=== PATIENT | female | born 1960 | race American Indian/Alaskan Native ===

== ENCOUNTER 2017-11-12 05:52 | Day surgery (SDC) | payer OTHER ==
[2017-11-12] MEDS ORDERED: ANCEF/STERILE WATER 2 GM/20 ML IV NR (06:00)
[2017-11-12] MEDS ORDERED: NACL BACTERIOSTATIC INFILTRATI ONE (06:35)
[2017-11-12] MEDS ORDERED: ADRENALIN IV ONE ×2 (06:41→08:00)
[2017-11-12] MEDS ORDERED: MARCAINE 0.5% 30 ML INFILTRATI ONE (07:13)
[2017-11-12] MEDS ORDERED: DECADRON ONE ×2 (07:13→10:14)
[2017-11-12] MEDS ORDERED: SUBLIMAZE ONE (07:14)
[2017-11-12] MEDS ORDERED: XYLOCAINE 1% 20 mL ONE (07:14)
[2017-11-12] MEDS ORDERED: XYLOCAINE MPF 2% ONE (07:20)
[2017-11-12] MEDS ORDERED: DIPRIVAN 10 MG/ML IV ONE (07:20)
[2017-11-12] MEDS ORDERED: SUBLIMAZE IV NR (07:23)
[2017-11-12] MEDS ORDERED: ZOFRAN IV PRN (07:23)
--- NOTE | 2017-11-12 07:23 | Anesthesia Day of Surgery ---
Anesthesia Day of Surgery - Day of Surgery Patient Examined: Yes Patient H&P Reviewed: Yes Patient is NPO: Yes Beta Blockers: Yes
--- NOTE | 2017-11-12 07:23 | Anesthesia Consultation ---
Anesthesia Consult and Med Hx Date of service: 11/12/17 - Airway Anesthetic Teeth Evaluation: Good ROM Head & Neck: Adequate Mental/Hyoid Distance: Adequate Mallampati Class: Class II Intubation Access Assessment: Probably Good - Pulmonary Exam CTA: Yes - Cardiac Exam Cardiac Exam: RRR - Pre-Operative Health Status ASA Pre-Surgery Classification: ASA2 Proposed Anesthetic Plan: General - Pulmonary Hx Smoking: No Hx Sleep Apnea: No (NICOLE PRE SCREEN LOW RISK) - Cardiovascular System Hx Hypertension: Yes (X 8 YRS - took beta george as scheduled) - Hematic Hx Anemia: Yes (NOT RECENT) Hx Sickle Cell Disease: No ([facility] TRAIT ONLY) - Other Systems Hx Cancer: No
[2017-11-12] MEDS ORDERED: XYLOCAINE 1% 20 mL INFILTRATI NR (07:30)
[2017-11-12] MEDS ORDERED: NACL P/F VIAL (10 ML) INFILTRATI NR (08:00)
[2017-11-12] MEDS ORDERED: VERSED IV NR (08:00)
[2017-11-12] MEDS ORDERED: MARCAINE 0.5% INFILTRATI NR (08:00)
[2017-11-12] MEDS ORDERED: LACTATED RINGERS 1,000 ML IV SCH (08:00)
[2017-11-12] MEDS ORDERED: ZOFRAN ONE (10:14)
--- NOTE | 2017-11-12 10:34 | Short Stay Summary ---
Short Stay Documentation Date of service: 11/12/17 - History H&P: obtained from office - Allergies and Medications Current Medications: Allergies No Known Allergies Allergy (Verified 11/02/17 10:55) Home Medications Medication Instructions Recorded Confirmed Last Taken Type Aspirin [Lo-Dose Aspirin EC] 81 mg PO DAILY 11/02/17 11/12/17 10/29/17 History Atenolol [Tenormin] 25 mg PO DAILY 11/02/17 11/02/17 11/11/17 09:00 History Hydrochlorothiazide [HCTZ] 25 mg PO QDAY 11/02/17 11/02/17 11/10/17 History Simvastatin [Zocor TAB] 20 mg PO QHS 11/02/17 11/02/17 11/11/17 History amLODIPine [Norvasc] 10 mg PO DAILY 11/02/17 11/02/17 11/11/17 History Active Medications Bupivacaine HCl (Marcaine 0.5%) 20 ml INFILTRATI PREOP NR Stop: 11/12/17 12:00 Cefazolin Sodium (Ancef/Sterile Water 2 Gm/20 Ml) 2 gm IV PREOP NR Stop: 11/12/17 23:59 Fentanyl (Sublimaze) 100 mcg IV ONCE NR Stop: 11/12/17 12:00 Hydromorphone HCl (Dilaudid) 0.5 mg IV Q10MIN PRN PRN Reason: Pain , Severe (7-10) Stop: 11/12/17 14:00 Lactated Ringer's (Lactated Ringers) 1,000 mls @ 100 mls/hr IV DIRECT SHANNAN Last Admin: 11/12/17 07:18 Dose: 100 mls/hr Lidocaine (Xylocaine 1% 20 Ml) 10 ml INFILTRATI PREOP NR Stop: 11/12/17 12:00 Midazolam HCl (Versed) 2 mg IV PREOP NR Stop: 11/12/17 23:59 Ondansetron HCl (Zofran) 4 mg IV ONCE PRN PRN Reason: Nausea And Vomiting Stop: 11/12/17 12:00 Sodium Chloride (Nacl P/F Vial (10 Ml)) 1 ml INFILTRATI PREOP NR Stop: 11/12/17 12:00 - Brief post op/procedure progress note Date of procedure: 11/12/17 Pre-op diagnosis: left shoulder pain, AC joint arthritis, superior labral tear, Post-op diagnosis: other (left shoulder pain, acromioclavicular joint arthritis , rotator cuff tear, extensive subacromial bursitis, advanced glenohumeral arthritis, degenerative tear of the anterior and superior labrum) Procedure: left shoulder arthorscopy, subacromial decompression, distal clavicle excision, debriedement of extensive subacromial bursitis, debriedement of degenerative tearing of the anterior and superior labrum, removal of small catilaginous loose bodies, rotator cuff repair Anesthesia: GETA Findings: as above Surgeon: BHAVIN HEATH Estimated blood loss: minimal Pathology: none Condition: stable - Hospital course Hospital course: no perioperative complications - Disposition Condition at discharge: Good Disposition: DC-01 TO HOME OR SELFCARE Short Stay Discharge Plan Follow up with: [facility] [Other] - 7 Days
[2017-11-12] MEDS ORDERED: PERCOCET 5/325 PO PRN (10:57)
[2017-11-12] MEDS: DILAUDID IV PRN ×4 (11:11→11:43)
--- NOTE | 2017-11-12 14:32 | Operative Report ---
PREOPERATIVE DIAGNOSES: Persistent left shoulder pain, acromioclavicular joint arthritis tearing of the superior labrum, possible rotator cuff tear. POSTOPERATIVE DIAGNOSES: Persistent left shoulder pain, advanced acromioclavicular joint arthritic changes with inferior spurs causing severe impingement upon the rotator cuff, degenerative tearing of the anterior and superior labrum, marked advanced glenohumeral joint arthritic changes with cartilaginous small loose bodies within the intra-articular aspect of the glenohumeral joint, intrasubstance rotator cuff tear involving the infraspinatus tendon, extensive subacromial bursitis. OPERATIVE PROCEDURE: Left shoulder arthroscopy, subacromial decompression, distal clavicle excision, debridement of extensive subacromial bursitis, debridement of degenerative tearing of the anterior and superior labrum, removal of small cartilaginous loose bodies from within the intraarticular aspect of the glenohumeral joint, [id number] rotator cuff tear involving the infraspinatus tendon. SURGEON: Antonino Obrien M.D. INVESTMENT COUNSELOR: Yg Philippe, certified registered nurse practitioner. ANESTHESIA: General plus an interscalene block to the operative left upper extremity. PREOPERATIVE ANTIBIOTICS: Ancef 2 grams IV within 1 hour of skin incision. DVT PROPHYLAXIS: Open toe, thigh high compression stockings and SCD pumps to bilateral lower extremities. OPERATIVE COMPLICATIONS: None. OPERATIVE INSTRUMENTATION: #2 Cobraided suture for side to side rotator cuff repair. OPERATIVE HISTORY AND PHYSICAL: This is a 57-year-old female who has had persistent progressive worsening left shoulder pain status post an injury on 05/26/2017. 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 The pain limits her day to day activity, has failed to improve despite extensive nonoperative treatment. MRI scan was performed, which was positive for acromioclavicular joint arthritis, superior labral tear as well as partial rotator cuff tear. The patient's MRI findings and diagnosis were discussed at length. After making sure the patient withstood that diagnosis and all of her questions were answered, we then discussed treatment alternatives of surgical and nonsurgical including risks and benefits of both after a long lengthy discussion, the patient opted to proceed with operative intervention. This will entail a left shoulder arthroscopy, subacromial decompression, distal clavicle excision, superior labral repair, possible rotator cuff repair and surgery as indicated. The risks of which were discussed to include but not exclusive of infection, blood loss, nerve damage, loss of range of motion, persistent pain. Again, the patient understood, all of her questions answered. She wished to proceed with operative intervention. OPERATIVE PROCEDURE: The patient was seen in the preoperative holding room area at which point, informed consent was reviewed and appropriate left upper extremity was identified and then marked. Anesthesia then performed an interscalene block of the left upper extremity. After confirmation of adequate analgesia of the left upper extremity, the patient was then brought back to the operating room and placed supine on a standard operating room table with a beach chair positioner already in place. General anesthesia was then administered. An LMA tube was inserted. After confirmation of adequate general anesthesia, checking appropriate placement of the LMA tube, we then made sure that all bony prominences were well padded that there were no wrinkles in the compression stockings on bilateral lower extremities and SCD pumps were applied to bilateral lower extremities. A pillow was placed beneath the posterior aspect of bilateral thighs, was placed in slight flexion at the hips and knees, making sure the popliteal fossa was free and clear. The patient was then sat in the beach chair position using the beachchair position, which was already in place and her head was secured in a nice suture position. Following this, the right upper extremity was secured in a neutral position of the patient's side with the aid of the well arm forbes. Left upper extremity was then examined under anesthesia. The patient was seen to have full range of motion without any evidence of instability. Following examination under anesthesia, the left upper extremity was then prepped and draped in the usual sterile fashion. After prepping and draping, a timeout was called and appropriate left upper extremity was identified, which again had been marked in the preoperative holding area and began the procedure by first making a standard posterior portal with a #15 blade. Once the port was established, the cannula with the blunt trocar was inserted into the intra-articular aspect of the glenohumeral joint. This went without difficulty or damage to articular cartilage. Once in place, the arthroscopic camera was immediately placed in the anterior aspect of the shoulder joint where we established an anterior portal by first inserting 18 gauge spinal needle through the subscap and biceps tendon under direct arthroscopic visualization. Once confirmed to be in appropriate position, a 15 blade was then used to establish an anterior portal. Once the port was established, a blunt trocar was inserted to widen the portal site for endoscopic probe. We began a diagnostic arthroscopy in the anterior aspect of the shoulder joint. The patient seemed to have a normal subscapularis tendon. There was marked degenerative tearing of the anterior and superior labrum. This was gently debrided using a 4.0 meniscal shaver, getting down to a nice smooth stable healthy remaining tissue, especially glenohumeral joint appeared to be severe advanced glenohumeral arthritis with marked articular cartilage wear of both the glenoid as well as the humeral head. There were copious amounts of small cartilaginous loose bodies ____ arthritic changes located diffusely throughout the anterior articular aspect of the glenohumeral joint, which was gently debrided using a 4.0 meniscal shaver. Inspection of the bicep tendon showed to be intact. Next, the shoulder was in its normal relation. There was an intrasubstance tear of the infraspinatus tendon, which was full thickness. Following this, arthroscopic camera was removed from the glenohumeral joint and then placed in the subacromial space. Once in the subacromial space, we saw there was severe advanced extensive subacromial bursitis. There was advanced acromioclavicular joint arthritic changes, which was causing severe impingement upon the rotator cuff. The soft tissue was removed from the undersurface acromion using Arthrocare ablation wand and then using a 4.0 hooded barrel bur, we carried a subacromial decompression from inferior to superior, posterior to anterior to make sure not to leave any residual anterior hook. We then turned our attention to the distal clavicle, which was also seen to be arthritic with inferior spurs contributing to impingement. Using a 4.0 hooded barrel bur was carried distal clavicle excision to a depth of approximately 6-8 mm. Once this was completed, we turned our attention to the extensive subacromial bursitis, which was gently debrided using a 4.0 meniscal shaver and hemostasis was achieved with the Arthrocare ablation wand. We turned our attention to the intrasubstance tear of the infraspinatus tendon, which was repaired with [id number] #2 sutures using copious Veress array of suture passers. Once completed, the arthroscopic pump was turned off to make sure there was good hemostasis. Once this was confirmed, the extraneous fluid was suctioned from the subacromial space using arthroscopic cannula. Following this, all the arthroscopic instrumentation was removed. The 4 portal sites were closed with 3-0 nylon in simple fashion. Adaptic, 4 x 4, ABD, paper tape, a small abduction sling and the Cryo/Cuff blanket was applied. The patient was then sat down from the beach chair into the supine position and was awakened from general anesthesia without complications and taken to recovery room in stable condition and standard postoperative orders were written. JOB# [id number] JAIMIE/JAYDEN MISTRY
[2017-11-12 14:51] VITALS: BP 102/70
== END 2017-11-12 12:50 | disposition home or self-care (01) ==
LOC: OR 05:52
PROVIDERS: ATTEND Orthopaedic Surgery
DX: S43.432A Superior glenoid labrum lesion of left shoulder, initial encounter (principal); S46.012A Strain of muscle(s) and tendon(s) of the rotator cuff of left shoulder, initial encounter; I10 Essential (primary) hypertension; X58.XXXA Exposure to other specified factors, initial encounter; Y93.89 Activity, other specified; Y92.89 Other specified places as the place of occurrence of the external cause; Y99.8 Other external cause status; Z79.82 Long term (current) use of aspirin; Z79.899 Other long term (current) drug therapy
CPT/HCPCS: 29823; 29824; 29826; J0171; J0690; J1100; J1170; J2250; J2405; J2704; J3010; J7120